=== PATIENT | male | born 1970 | race Caucasian/White ===

== ENCOUNTER → 2017-07-31 19:53 | Outpatient (CLI) | payer OTHER, SELFPAY ==
[2017-07-31] MEDS: Zolpidem Tartrate 5 MG Tablet PO (21:35)
== END ==
PROVIDERS: Visit Provider Psychiatry & Neurology Psychiatry
DX: G47.33 Obstructive sleep apnea (adult) (pediatric) (principal)
CPT/HCPCS: 95810